=== PATIENT | male | born 1955 | race Caucasian/White ===

== ENCOUNTER → 2018-11-29 | Outpatient (CLI) | payer OTHER ==
[2018-11-29] VITALS (8 sets, daily range): BP systolic 100–128; BP diastolic 64–68
[~2018-11-29] VITALS: Ht 170.2 cm; Wt 136.4 kg
[~2018-11-29] MED LIST: ASPIR 8181 MG PO; BENAZEPRIL HCL40 MG PO; CELEXA40 MG PO; LIPITOR 20 MG T20 M1 PO; NITROGLYCERIN0.4 MG SUBLING; PLAVIX 75 MG TA75 M1 PO; PRILOSEC 20 MG20 MG PO
[2018-11-29 08:09] LABS: HEMOGLOBIN 15.5 gm/dL (14.0-18.0); MCH 31.2 pg (26.0-34.0); MCHC 33.7 g/dL (28.0-37.0); MCV 92.8 fL (80.0-100.0); MPV 9.1 fl. (7.2-11.1); RBC 4.96 mil/uL (4.50-6.00); RDW-CV 13.7 % (10.5-14.5); WBC 7.8 thou/uL (4.0-11.0)
[2018-11-29 08:19] LABS: APTT 25.4 Seconds (25.0-31.3); PROTIME 10.2 Seconds (9.20-11.50)
[2018-11-29 08:52] LABS: ANION GAP 8 mmol/L (7-16); BUN 13 mg/dL (7-18); CALCIUM 9.2 mg/dL (8.5-10.1); CHLORIDE 106 mmol/L (98-107); CO2 28 mmol/L (21-32); CREATININE 1.1 mg/dL (0.6-1.3); GLUCOSE 116 mg/dL (70-99); POTASSIUM 4.1 mmol/L (3.5-5.1); SODIUM 142 mmol/L (136-145)
[2018-11-29 08:57] LABS: ALBUMIN 3.3 g/dL (3.4-5.0); ALKALINE PHOSPHATASE 84 U/L (46-116); CHOLESTEROL 118 mg/dL (<200); HDL CHOLESTEROL 52 mg/dL (>40); LDL CHOLESTEROL 53 mg/dL (<100); SGOT 18 U/L (15-37); SGPT 29 U/L (30-65); TC:HDL 2.3 Ratio (Not establshd); TOTAL BILIRUBIN 0.7 mg/dL (<0.1-1.0); TOTAL PROTEIN 6.7 g/dL (6.4-8.2); TRIGLYCERIDE 65 mg/dL (<150); VLDL 13 mg/dL (<40)
[2018-11-29 08:58] LABS: SERUM ASSESSMENT Clear
--- NOTE | 2018-11-29 10:55 | EKG ---
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
[2018-11-29 12:35] LABS: HEMATOCRIT 43.1 % (42.0-52.0); HEMOGLOBIN 14.4 gm/dL (14.0-18.0); MCHC 33.5 g/dL (28.0-37.0); MCV 92.5 fL (80.0-100.0); MPV 8.9 fl. (7.2-11.1); RBC 4.66 mil/uL (4.50-6.00); RDW-CV 13.9 % (10.5-14.5); WBC 7.7 thou/uL (4.0-11.0)
[2018-11-29 12:45] LABS: ANION GAP 7 mmol/L (7-16); BUN 13 mg/dL (7-18); CALCIUM 8.9 mg/dL (8.5-10.1); CHLORIDE 105 mmol/L (98-107); CO2 29 mmol/L (21-32); GLUCOSE 121 mg/dL (70-99); POTASSIUM 4.5 mmol/L (3.5-5.1); SODIUM 141 mmol/L (136-145)
[2018-11-29 12:57] LABS: TROPONIN-I LEVEL <0.06 ng/mL (<0.06)
--- NOTE | 2018-11-29 14:47 | CARD ---
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 Procedure Narrative The patient was brought electively to the Cardiac Catheterization Laboratory and was prepped and draped in a sterile manner. The right wrist was infiltrated with 1% Lidocaine subcutaneous anesthesia. A Slender Glidesheath sheath was inserted into the right radial artery. Coronary angiography was performed using coronary diagnostic catheters. The right coronary system was accessed and visualized with a Diagnostic JR4 catheter. The left coronary system was accessed and visualized with a Diagnostic JL4 catheter. The left ventricle was accessed and visualized with a Diagnostic Angled Pigtail catheter. Left ventricular/Aortic Valve gradient assessed via catheter pullback. Left ventriculogram was performed in QUINN projection. Closure device was deployed with a 6 Fr vascband. The patient tolerated the procedure well and there were no complications associated with the procedure. There was no hematoma[place] [address] CARDIAC CATH REPORT Name: SHAVON PEDROZA Room: [facility]#: [id number] Admission: 11/29/18 Attend Phys: Prakash Aguirre MD, F Discharge: Date of : 51 Report #: [id number] Sedation start time: 9:27 Case end Time: 10:20 Fentanyl 50 mcg Versed 3 mg Fluoro Time: 11.1 minutes Dose: DAP 363508 cGycm2 2592 mGy Contrast Type and Amount: Omnipaque 230 ml Coronary Angiography The patient's coronary anatomy is right dominant. Diagnostic Cath Left Main 0% stenosis LAD 0% stenosis Diagonal 2 30% ostial stenosis Circumflex 90% mid stenosis Right Coronary 0% stenosis Left Ventriculography The left ventricular ejection fraction is estimated to be 55-60%. Left ventricular wall motion abnormalities are not present. There is no mitral insufficiency. Hemodynamics The aortic pressure is 87/60 mmHg with a mean of 73 mmHg. The left ventricular pressure is 106/10 mmHg with a mean of mmHg. The left ventricular end diastolic pressure is 12 mmHg. There was no gradient across the aortic valve upon pullback. Pullback from the left ventricle to the aorta revealed no gradient across the aortic valve. PCI Technique Lesion Anticoagulation was achieved with Heparin. bolus of iv aggrastat given Percutaneous coronary intervention was performed on the mid circumflex artery segment. The lesion stenosis prior to intervention was 90% with IQRA 3 flow. A 6FR XB 3.5 100CM Guide Catheter was used to engage the lm ostium. A IG: BMW 190cm Interventional Guidewire was used to cross the lesion. BALLOON DILATION A Balloon catheter Trek RX 2.5 X 8 was inserted and inflated up to 10.00atm for 15seconds. Repeat angiography revealed the following post-dilatation results: 40% stenosis. STENT DEPLOYMENT A drug-eluting stent Alligator RX Stent 2.5X15mm [place] [address] CARDIAC CATH REPORT Name: SHAVON PEDROZA Room: [facility]#: [id number] Admission: 11/29/18 Attend Phys: Prakash Aguirre MD, F Discharge: Date of : 51 Report #: [id number] inflated up to 12.00atm for 13seconds. Repeat angiography revealed the following post-stent deployment results: 0% stenosis. Final angiography reveals 0 % stenosis with IQRA 3 flow. Conclusion 1. Single vessel CAD with 90% stenosis of mid circumflex artery. 2. LVEF 55-60% 3. successful placement of a drug eluting stent in the circumflex Recommendations Cardiac Rehabilitation Referral Aggressive Medical Therapy Medications Administered Clopidogrel <ELECTRONICALLY SIGNED> By: Prakash Aguirre MD, FACC 11/29/18 1447 1447 1447Prakash Aguirre MD, [facility] /INF
--- NOTE | 2018-11-29 15:59 | CON ---
[address] [address] CONSULTATION Name: YOVANYSHAVON EVANGELINA Room: [facility] LIZZIE Quiroga.#: [id number] Admission: 11/29/18 Attend Phys: Prakash Aguirre MD, F Discharge: Date of : 51 Report #: [id number] THIS REPORT FOR: //name// CC: HUI Aguirre DATE OF SERVICE: 11/29/2018 HISTORY OF PRESENT ILLNESS: The patient is a 62-year-old white male who was brought to the outpatient department to undergo cardiac catheterization. The patient has no previous history of heart disease. Because of risk factors, he underwent coronary artery calcium scoring in 04/2018. His total score was 541, predominantly in the LAD and circumflex. He underwent a dobutamine stress echocardiogram in July of this year that showed no obvious ischemia. I saw him in the Cardiology Clinic, and the patient denied a history of angina. I recommended medical therapy. Recently, he has noticed, however, with exertion, he becomes short winded. He denies any chest tightness, arm pain, palpitations, syncope. He saw my nurse practitioner in September, who recommended a nuclear stress test. This was performed with Lexiscan and was done 10 days ago. This suggested a moderate sized area of reversible ischemia involving the inferior wall. Ejection fraction of 66%. This is felt to be consistent with ischemia. Because of these symptoms and risk factors, I recommended cardiac catheterization. PAST MEDICAL HISTORY: Significant for uvulectomy for sleep apnea, hypertension, hyperlipidemia and has a previous history of DVT and was on Xarelto in the past. CURRENT MEDICATIONS: Include aspirin, Lipitor, Lotensin, Celexa, Prozac. ALLERGIES: He has no known drug allergies. FAMILY HISTORY: His father had coronary artery bypass surgery. SOCIAL HISTORY: He is . He and his live in [place]. 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 Nonsmoker. No alcohol abuse. REVIEW OF SYSTEMS: He is overweight. PHYSICAL EXAMINATION: GENERAL: Standing 5 feet 7 inches and weighing 307 pounds. HEENT: He is anicteric. Conjunctivae pink. Mucous membranes moist. NECK: Veins difficult to assess due to obesity. No carotid bruits. CHEST: Clear to auscultation. CARDIOVASCULAR: Regular rate and rhythm. ABDOMEN: [place] [address] CONSULTATION Name: SHAVON PEDROZA EVANGELINA Room: [facility]#: [id number] Admission: 11/29/18 Attend Phys: Prakash Aguirre MD, F Discharge: Date of : 51 Report #: [id number] EXTREMITIES: Had trace edema. Dorsalis pedis pulses could not be palpated. SKIN: Cool and dry. NEUROLOGIC: Nonfocal. LABORATORY DATA: His workup, echocardiogram in 08/2015 showed an ejection fraction of 50%. Lower extremity Doppler study in April showed no DVT. Chest x-ray in April showed cardiomegaly. IMPRESSION AND RECOMMENDATIONS: 1. Coronary artery disease. The patient with risk factors for coronary artery disease. Abnormal coronary calcium score. Abnormal nuclear stress test. Because of symptoms, recommend cardiac catheterization. 2. Hypertension. The patient is on DAT inhibitor. 3. Hyperlipidemia. The patient is on a statin drug. 4. Obesity. 5. History of sleep apnea. The patient had previous uvulectomy. <ELECTRONICALLY SIGNED> By: Prakash Aguirre MD, FACC 11/29/18 1559 0806 [id number] Aguirre MD, FACC /nt
--- NOTE | 2018-11-29 16:12 | EKG ---
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
== END ==
LOC: M.CL 07:07
PROVIDERS: Internal Medicine Cardiovascular Disease
DX: I25.10 Atherosclerotic heart disease of native coronary artery without angina pectoris (principal); I10 Essential (primary) hypertension; E78.00 Pure hypercholesterolemia, unspecified; E78.5 Hyperlipidemia, unspecified; E66.09 Other obesity due to excess calories; K21.9 Gastro-esophageal reflux disease without esophagitis; Z98.52 Vasectomy status; Z86.718 Personal history of other venous thrombosis and embolism; Z79.01 Long term (current) use of anticoagulants; Z79.82 Long term (current) use of aspirin; Z79.899 Other long term (current) drug therapy; Z98.890 Other specified postprocedural states

== ENCOUNTER → 2021-03-30 | Outpatient (CLI) | payer MEDICARE, OTHER ==
[2021-03-30 11:35] LABS: ABSOLUTE EOSINOPHILS 0.1 thou/uL (0.0-0.7); ABSOLUTE LYMPHOCYTES 2.6 thou/uL (0.8-5.3); ABSOLUTE MONOCYTES 0.9 thou/uL (0.0-1.2); ABSOLUTE NEUTROPHILS 5.2 thou/uL (1.6-8.1); BASOPHILS 0.5 %; EOSINOPHILS 0.7 %; HEMATOCRIT 46.9 % (42.0-52.0); HEMOGLOBIN 15.9 gm/dL (14.0-18.0); LYMPHOCYTES 29.8 %; MCHC 33.9 g/dL (28.0-37.0); MCV 91.3 fL (80.0-100.0); MONOCYTES 10.3 %; MPV 8.6 fl. (7.2-11.1); NUCLEATED RBCS 0 /100WBC; PLATELET COUNT* 242 thou/uL (150-400); POLYS 58.7 %; RBC 5.14 mil/uL (4.50-6.00); RDW-CV 14.1 % (10.5-14.5); WBC 8.8 thou/uL (4.0-11.0)
[2021-03-30 11:49] LABS: ALBUMIN 3.7 g/dL (3.4-5.0); ALKALINE PHOSPHATASE 103 U/L (46-116); ANION GAP 9 mmol/L (7-16); BUN 22 mg/dL (7-18); CALCIUM 9.3 mg/dL (8.5-10.1); CHLORIDE 101 mmol/L (98-107); CHOLESTEROL 125 mg/dL (<200); CO2 26 mmol/L (21-32); CREATININE 1.4 mg/dL (0.6-1.3); GLUCOSE 124 mg/dL (70-99); HDL CHOLESTEROL 53 mg/dL (>40); LDL CHOLESTEROL 54 mg/dL (<100); NT-PRO BRAIN NAT PEPTIDE 90 pg/mL (<300); POTASSIUM 4.5 mmol/L (3.5-5.1); SGOT 15 U/L (15-37); SGPT 26 U/L (30-65); SODIUM 136 mmol/L (136-145); TC:HDL 2.4 Ratio (Not establshd); TOTAL PROTEIN 7.2 g/dL (6.4-8.2); TRIGLYCERIDE 93 mg/dL (<150); VLDL 19 mg/dL (<40)
[2021-03-30 11:51] LABS: SERUM ASSESSMENT Clear
== END ==
LOC: M.LAB 10:38
PROVIDERS: ATTEND Nurse Practitioner
DX: J98.11 Atelectasis (principal); I50.32 Chronic diastolic (congestive) heart failure; E78.49 Other hyperlipidemia; R63.5 Abnormal weight gain

== ENCOUNTER → 2021-05-02 | Outpatient (CLI) | payer MEDICARE, OTHER ==
[2021-05-02 10:36] LABS: CALCIUM 9.4 mg/dL (8.5-10.1); CREATININE 1.3 mg/dL (0.6-1.3); POTASSIUM 4.2 mmol/L (3.5-5.1)
== END ==
LOC: M.LAB 10:13
PROVIDERS: ATTEND Nurse Practitioner
DX: R60.9 Edema, unspecified (principal)